=== PATIENT | male | born 1945 | race Asian ===

== ENCOUNTER 2018-03-02 08:44 | Day surgery (SDC) | payer MEDICARE, OTHER ==
[~2018-03-02] VITALS: Ht 162.6 cm; Wt 59.0 kg
[2018-03-02] MEDS ORDERED: benazapril (09:49)
[2018-03-02] MEDS ORDERED: amlodipine (09:49)
[2018-03-02 09:51] VITALS: Ht 162.6 cm; Wt 59.0 kg
[2018-03-02 10:39] VITALS: BP 159/80; PULSE 69; RESP 18
--- NOTE | 2018-03-02 10:44 | PREAC ---
Date/Time of Note Date/Time of Note DATE: 03/02/18 TIME: 10:42 Anesthesia Eval and Record Evaluation Time Pre-Procedure Interview DATE: 03/02/18 TIME: 10:42 Age 72 Sex male NPO: 8 hrs Preoperative diagnosis Positive Occult blood, screening Planned procedure Colonoscopy Past Medical History Past Medical History: Includes Cardio: HTN Surgery & Anesthesia Issues No known issue Meds Anticoagulation: No Beta Ericka within 24 hr: No Reason Beta Ericka not given: Pt. not on B-Ericka Reported Medications [benazapril] No Conflict Check 03/02/18 [amlodipine] No Conflict Check 03/02/18 Meds reviewed: Yes Allergies Coded Allergies: No Known Allergy (Unverified , 03/02/18) Allergies Reviewed: Yes Labs/Studies Labs Reviewed: Reviewed by anesthesiologist test: N/A Studies: ECG (n/a), CXR (n/a) Pre-procedure Exam Last vitals Vital Signs Date Temp Pulse Resp B/P (MAP) Pulse Ox O2 O2 Flow FiO2 Time Delivery Rate 03/02/18 98.8 69 18 159/80 99 Room Air 10:39 (106) Airway: Adequate mouth opening, Adequate thyromental dist Mallampati: Mallampati II Teeth: Normal Lung: Normal Heart: Normal ASA Physical Status ASA physical status: 2 Emergency: None Planned Anesthetic General/MAC: MAC Planned Pain Management Parenteral pain med Pre-operative Attestations Prior to commencing anesthesia and surgery, the patient was re-evaluated, there was verification of: *The patient's identity *The results of appropriate recent lab work and preoperative vital signs *The above evaluation not changing prior to induction *Anesthetic plan, risk benefits, alternative and complications discussed with patient/family; questions answered; patient/family understands, accepts and wishes to proceed. JACQUE MARIE MD Mar 02, 2018 10:44
--- NOTE | 2018-03-02 11:13 | PAC ---
Date/Time of Note Date/Time of Note DATE: 03/02/18 TIME: 11:12 Post-Anesthesia Notes Post-Anesthesia Note Last documented vital signs Vital Signs Date Temp Pulse Resp B/P (MAP) Pulse Ox O2 O2 Flow FiO2 Time Delivery Rate 03/02/18 98.8 69 18 159/80 99 Room Air 11:29 (106) Activity: WNL Respiratory function: WNL Cardiovascular function: WNL Mental status: Baseline Pain reasonably controlled: Yes Hydration appropriate: Yes Nausea/Vomiting absent: Yes JACQUE MARIE MD Mar 02, 2018 11:13
[2018-03-02] MEDS ORDERED: PROPOFOL 40 ML ONE (11:23)
[2018-03-02 11:50] VITALS: BP 124/66; PULSE 58; RESP 15
== END 2018-03-02 13:36 | disposition home or self-care (01) ==
LOC: GIL 08:44
PROVIDERS: ATTEND Internal Medicine Gastroenterology
DX: R19.5 Other fecal abnormalities (principal); D12.5 Benign neoplasm of sigmoid colon; K64.4 Residual hemorrhoidal skin tags; I10 Essential (primary) hypertension
CPT/HCPCS: 88305